=== PATIENT | female | born 1930 | race Caucasian/White ===

== ENCOUNTER 2017-03-25 12:29 | Emergency (ER) | payer MEDICARE, OTHER ==
[2017-03-25 14:47] VITALS: BP 115/65
[2017-03-25] MEDS ORDERED: Lidocaine 1% MPF* 2 ML VIAL INJ ONE (15:11)
[2017-03-25] MEDS ORDERED: Tetan/Diph/Pertus SYR(Tdap)* 0.5 ML SYR(BOOSTRIX) use SYR IM ONE (15:16)
--- NOTE | 2017-03-25 15:28 | UC ---
Laceration HPI - HPI Summary HPI Summary: Patient presents s/p head laceration, she states she slipped on the wood floor is her stocking feet, and hit her head on the coffee table and cut her head on the left side behind her ear. She denies any LOC, or neck pain, She denies headache, double, or blurred vision, nausea or vomiting. She takes a baby aspirin daily. - History Of Current Complaint Chief Complaint: UCLaceration Stated Complaint: SCALP LACERATION Time Seen by Provider: 03/25/17 15:04 Hx Obtained From: Patient Laceration Location: Head Mechanism Of Injury: Blunt Trauma Onset/Duration: Sudden Onset, Lasting Hours Severity: Mild Pain Intensity: 0 Aggravating Factors: Nothing - Allergies/Home Medications Allergies/Adverse Reactions: Allergies Allergy/AdvReac Type Severity Reaction Status Date / Time Caffeine Allergy DIGESTIVE Verified 03/25/17 14:47 Home Medications: Home Medications Calcium Carbonate-Cholecalcife [Oyster Shell Calcium+D 500-200 mg-Unit] 1 tab PO BID 03/25/17 [History Confirmed 03/25/17] Fiber [Advanced Fiber Complex/AC] 1 cap PO Q4HR 03/25/17 [History Confirmed ] Magnesium 400 mg PO DAILY 03/25/17 [History Confirmed 03/25/17] Melatonin 1 tab PO DAILY 03/25/17 [History Confirmed 03/25/17] PMH/Surg Hx/FS Hx/Imm Hx Previously Healthy: Yes GI/ History: Gastroesophageal Reflux - Surgical History Surgical History: Yes Surgery Procedure, Year, and Place: cholecystectomy, cataract surgery, hysterectomy, t&a - Family History Known Family History: Positive: Cardiac Disease - Social History Occupation: Retired Lives: Alone Alcohol Use: Occasionally Substance Use Type: None Smoking Status (MU): Former Smoker Type: Cigarettes Amount Used/How Often: 2 CIGARETTES PER DAY X 2 YEARS Length of Time of Smoking/Using Tobacco: 2 years Have You Smoked in the Last Year: No When Did the Patient Quit Smoking/Using Tobacco: 1950 Household Exposure Type: Cigarettes - Immunization History Most Recent Influenza Vaccination: fall 2014 Most Recent Tetanus Shot: up to date Most Recent Pneumonia Vaccination: Fall 2014 Review of Systems Constitutional: Negative Skin: Negative, Other - head laceration Eyes: Negative ENT: Negative Respiratory: Negative Cardiovascular: Negative Gastrointestinal: Negative Genitourinary: Negative Motor: Negative Neurovascular: Negative Musculoskeletal: Negative Neurological: Negative Psychological: Negative Is Patient Immunocompromised?: No All Other Systems Reviewed And Are Negative: Yes Physical Exam Triage Information Reviewed: Yes Appearance: Well-Appearing Vital Signs: Initial Vital Signs Temp 96.9 F 03/25/17 14:41 Pulse 98 03/25/17 14:41 Resp 14 03/25/17 14:41 BP 115/65 03/25/17 14:41 Pulse Ox 100 03/25/17 14:41 Vital Signs Reviewed: Yes Eye Exam: Normal ENT Exam: Normal Neck exam: Normal Neck: Positive: 1 Respiratory Exam: Normal Cardiovascular Exam: Normal Musculoskeletal Exam: Normal Neurological Exam: Normal Psychological Exam: Normal Skin Exam: Normal, Other - 3.0 cm laceraton left side of head behind the ear. superficial involving the epithelial tissue. Laceration Repair - Laceration Repair 1 Description: Linear Laceration Size After Repair: Length (cm) - 3.0 cm x 1.0 cm Anesthesia Used: 2.0% Lido Closure Material: Swetha - 4 swetha placed with excellent approximation. Closure Method: Single Layer Laceration Course/Dx - Course/Dx Course Of Treatment: Patient presents s/p minor head injury, she declined CT today. The wound was irrigated, and lidocaine 2% was used, 4 swetha to approximate. Patient understands that I could not rule out a brain bleed from the fall. She states she did not hit her head, and if she gets a headache she will go to the ER. 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 She verbalized understanding of my concerns, and politley declined and was otherwise in agreement with the discharge plan. - Differential Dx - Laceration/Wound Differental Diagnoses: Laceration Provider Diagnoses: laceration Discharge - Discharge Plan Condition: Stable Disposition: HOME Patient Education Materials: Laceration (DC) Referrals: Maria De Jesus Villegas MD [Primary Care Provider] - Additional Instructions: You will need to have the swetha removed in 7-10 days.
== END 2017-03-25 16:00 | disposition home or self-care (01) ==
LOC: UCEAST 12:29
DX: S01.01XA Laceration without foreign body of scalp, initial encounter (principal); W01.190A Fall on same level from slipping, tripping and stumbling with subsequent striking against furniture, initial encounter; Y92.9 Unspecified place or not applicable; K21.9 Gastro-esophageal reflux disease without esophagitis; Z87.891 Personal history of nicotine dependence
CPT/HCPCS: 12002; 90715; 99211; G0463